=== PATIENT | female | born 1990 | race Caucasian/White ===

== ENCOUNTER 2019-05-15 18:04 | Emergency (ER) | payer MEDICAID ==
[~2019-05-15] VITALS: Ht 170.2 cm; Wt 71.2 kg
[2019-05-15 18:16] VITALS: BP 119/72
--- NOTE | 2019-05-15 19:11 | PHYS DOC ---
Past Medical History Past Medical History: No Pertinent History Alcohol Use: None Drug Use: None Adult General Chief Complaint Chief Complaint: SHORTNESS OF BREATH HPI HPI Patient is a 28 year old female tobacco smoker presents with shortness of breath, productive cough and chest tightness for the past week. Denies fever chills, nausea vomiting or sweats. No dizziness lightheadedness, urinary frequency urgency burning. Denies increased leg pain or swelling.[] Review of Systems Review of Systems Review of systems as per history of present illness. So he's calling from [employer] somewhere else All other systems were reviewed and found to be within normal limits, except as documented in this note. Current Medications Current Medications Current Medications Medications (Trade) Dose Ordered Sig/Meli Start Time Stop Time Status Last Admin Dose Admin Albuterol/ Ipratropium (Duoneb) 3 ml 1X ONCE 05/15/19 19:30 05/15/19 19:31 DC 05/15/19 19:20 3 ML Doxycycline Hyclate (Vibra-Tab) 100 mg 1X ONCE 05/15/19 20:30 05/15/19 20:31 DC Allergies Allergies Allergies Coded Allergies Type Severity Reaction Last Updated Verified No Known Drug Allergies 05/15/19 No Physical Exam Physical Exam Constitutional: Well developed, well nourished, no acute distress, non-toxic a ppearance. [] HENT: Normocephalic, atraumatic, bilateral external ears normal, oropharynx moist, no oral exudates, nose normal. [] Eyes: PERRLA, EOMI, conjunctiva normal, no discharge. [] Neck: Normal range of motion, no tenderness. [] Cardiovascular:Heart rate regular rhythm, no murmur [] Lungs & Thorax: Bilateral breath sounds clear to auscultation [] Abdomen: Bowel sounds normal, soft, no tenderness. [] Skin: Warm, dry, no erythema. [] Back: No tenderness, no CVA tenderness. [] Extremities: No tenderness, no cyanosis, no edema. [] Neurologic: Alert and oriented X 3, normal motor function, normal sensory function, no focal deficits noted. [] Psychologic: Affect normal, judgement normal, mood normal. [] Current Patient Data Vital Signs Vital Signs Date Time Temp Pulse Resp B/P (MAP) Pulse Ox O2 Delivery O2 Flow Rate FiO2 7/17/19 19:22 99 Room Air 05/15/19 18:16 97.5 81 22 119/72 (88) 97.5 EKG EKG [] Radiology/Procedures Radiology/Procedures [X-ray: Left sided pulmonary infiltrate on preliminary ED review] Course & Med Decision Making Course & Med Decision Making Pertinent Labs and Imaging studies reviewed. (See chart for details) [Breathing improved with treatment. Chest x-ray concerning for pneumonia. First dose of antibiotics given in the emergency department and prescription provided. Patient instructed to follow-up with her PCP in 3-5 days for reevaluation. Return precautions reviewed. Patient verbalizes understanding and agreement discharge instructions prior to departure. Dragon Disclaimer Dragon Disclaimer This electronic medical record was generated, in whole or in part, using a voice recognition dictation system. Departure Departure Impression: Primary Impression: Pneumonia Disposition: HOME, SELF-CARE Condition: GOOD Referrals: UNKNOWN PCP NAME (PCP) Patient Instructions: Pneumonia, Adult Additional Instructions: Please take medication as prescribed and follow-up with local PCP in 3-5 days for reevaluation. Return to the ED if new or worsening symptoms Scripts Guaifenesin (MUCINEX) 1,200 Mg Tbmp.12hr 1 TAB PO BID, #14 TAB Prov: YING BAILEY DO 05/15/19 Albuterol Sulfate (Proair Hfa) 8.5 Gm Hfa.aer.ad 1 PUFF INH PRN Q6HRS PRN for SHORTNESS OF BREATH, #1 INHALER Prov: YING BAILEY DO 05/15/19 Doxycycline Hyclate (DOXYCYCLINE HYCLATE) 100 Mg Tablet 1 TAB PO BID, #20 TAB Prov: YING BAILEY DO 05/15/19 YING BAILEY DO May 15, 2019 19:11
[2019-05-15] MEDS ORDERED: IPRATRPIUM/ALBUTEROL 0.5/2.5MG 3 ML NEBU. NEB ONE (19:30)
[2019-05-15] MEDS ORDERED: DOXYCYCLINE HYCLATE 100 MG TABLET PO ONE (20:30)
[2019-05-15] MEDS ORDERED: ALBU2.5V8 INH (20:44)
[2019-05-15] MEDS ORDERED: GUAI12003 PO (20:44)
[2019-05-15] MEDS ORDERED: DOXY100T PO (20:44)
--- NOTE | 2019-05-16 02:21 | RAD ---
PA and lateral chest radiographs 05/15/2019 Clinical History: Shortness of breath and chest pain for one day. PA and lateral digital radiographs of the chest were obtained. No previous studies are available for comparison. The cardiac and mediastinal silhouettes are within normal limits in size and configuration. No pulmonary infiltrate is seen. No pleural effusion or pneumothorax is noted. The osseous structures are grossly intact. Impression: No radiographic evidence of active cardiopulmonary disease. Electronically signed by: Emeterio Nuñez MD (05/16/2019 2:18 AM) [id number]
== END 2019-05-15 20:57 | disposition home or self-care (01) ==
LOC: ER 18:04
DX: J18.9 Pneumonia, unspecified organism (principal)
CPT/HCPCS: 71046; 94640; 99284; J7620

== ENCOUNTER 2019-10-15 23:18 | Emergency (ER) | payer MEDICAID ==
[~2019-10-15] VITALS: Ht 170.2 cm; Wt 65.8 kg
[~2019-10-15 23:18] MED LIST: ALBU2.5V8 INH; DOXY100T PO; GUAI12003 PO
[2019-10-15 23:55] VITALS: BP 117/90
--- NOTE | 2019-10-16 00:11 | PHYS DOC ---
Past Medical History Past Medical History: No Pertinent History Alcohol Use: None Drug Use: None Adult General Chief Complaint Chief Complaint: MUSCLE SPASM/CRAMP HPI HPI Patient is a 29-year-old female who presents with complaint of spasms in her jaw and into her hands after taking Latuda this evening. Patient also indicates that after taking the medication that she has severe restlessness and feels like she is not able to sit still. Patient does indicate that she took a Benadryl at home and symptoms have improved somewhat. She denies any chest pain or shortness of breath. She denies any thoughts of self-harm or homicidal ideations.[] Review of Systems Review of Systems Constitutional: Denies fever or chills [] Respiratory: Denies cough or shortness of breath [] Cardiovascular: No additional information not addressed in HPI [] GI: Denies abdominal pain, nausea, vomiting or diarrhea [] Musculoskeletal: Positive muscle cramps/pain [] Integument: Denies rash or skin lesions [] Neurologic: Denies headache, focal weakness or sensory changes [] Current Medications Current Medications Current Medications Medications (Trade) Dose Ordered Sig/Meli Start Time Stop Time Status Last Admin Dose Admin Diphenhydramine HCl (Benadryl) 25 mg 1X ONCE 10/16/19 00:30 10/16/19 00:31 DC 10/16/19 00:47 25 MG Allergies Allergies Allergies Coded Allergies Type Severity Reaction Last Updated Verified No Known Drug Allergies 05/15/19 No Physical Exam Physical Exam Constitutional: Well developed, well nourished, no acute distress, non-toxic appearance. [] HENT: Normocephalic, atraumatic, bilateral external ears normal, oropharynx moist, no oral exudates, nose normal. [] Eyes: PERRLA, EOMI, conjunctiva normal, no discharge. [] Cardiovascular: Regular rate and rhythm[] Lungs & Thorax: Bilateral breath sounds clear to auscultation [] Abdomen: Bowel sounds normal, soft, no tenderness. [] Neurologic: Alert and oriented X 3, no focal deficits noted. [] Current Patient Data Vital Signs Vital Signs Date Time Temp Pulse Resp B/P (MAP) Pulse Ox O2 Delivery O2 Flow Rate FiO2 10/15/19 23:55 97.4 85 18 117/90 (99) 95 Room Air 97.4 EKG EKG [] Radiology/Procedures Radiology/Procedures [] Course & Med Decision Making Course & Med Decision Making Pertinent Labs and Imaging studies reviewed. (See chart for details) [] Dragon Disclaimer Dragon Disclaimer This electronic medical record was generated, in whole or in part, using a voice recognition dictation system. Departure Departure Impression: Primary Impression: Dystonic drug reaction Disposition: HOME, SELF-CARE Condition: STABLE Referrals: NO PCP (PCP) Patient Instructions: Dystonic Reaction Additional Instructions: I would recommend discontinuance of the Latuda and follow-up with your primary care provider in the next 1-2 days. FARIHA MARIE Jr. DO Oct 16, 2019 00:11
[2019-10-16] MEDS: diphenhydrAMINE 50 MG/ML VIAL IM ONE (00:47)
== END 2019-10-16 01:26 | disposition home or self-care (01) ==
LOC: ER 23:18
DX: G24.09 Other drug induced dystonia (principal); T43.595A Adverse effect of other antipsychotics and neuroleptics, initial encounter; Y92.89 Other specified places as the place of occurrence of the external cause
CPT/HCPCS: 96372; 99283; J1200